=== PATIENT | male | born 1980 | race Two or more races ===

== ENCOUNTER 2018-07-04 12:08 | Day surgery (SDC) | payer OTHER ==
[~2018-07-04 12:08] MED LIST: Lactated Ringers 1,000 ML IV SCH
--- NOTE | 2018-07-04 13:55 | PCM.PREANE ---
Preanesthetic Assessment - Anesthesia/Transfusion/Family Hx Anesthesia History: Prior Anesthesia Without Reaction Family History of Anesthesia Reaction: No Transfusion History: No Prior Transfusion(s) - Review of Systems General: No Symptoms Pulmonary: No Symptoms Cardiovascular: No Symptoms Gastrointestinal: No Symptoms Neurological: No Symptoms Other: Reports: None - Physical Assessment NPO Status Date: 07/03/18 O2 Sat by Pulse Oximetry: 98 Respiratory Rate: 16 Vital Signs: Last Vital Signs Temp 36.4 C 07/04/18 13:05 Pulse 53 L 07/04/18 13:05 Resp 16 07/04/18 13:05 BP 141/72 H 07/04/18 13:05 Pulse Ox 98 07/04/18 13:05 Height: 1.7 m Weight: 83.461 kg ASA Class: 2 Mental Status: Alert & Oriented x3 Airway Class: Mallampati = 1 Dentition: Reports: Normal Dentition ROM/Head Extension: Full Lungs: Clear to Auscultation, Normal Respiratory Effort Cardiovascular: Regular Rate, Regular Rhythm - Allergies Allergies/Adverse Reactions: Allergies Allergy/AdvReac Type Severity Reaction Status Date / Time Dairy Products Allergy Diarrhea Verified 07/02/18 12:09 - Blood Blood Available: No - Acknowledgements Anesthesia Type Planned: General Anesthesia Pt an Appropriate Candidate for the Planned Anesthesia: Yes Alternatives and Risks of Anesthesia Discussed w Pt/Guardian: Yes Pt/Guardian Understands and Agrees with Anesthesia Plan: Yes PreAnesthesia Questionnaire HEENT History: Reports: Impaired Vision Other HEENT History: blind in left eye Cardiovascular History: Reports: Hypertension Other Cardiovascular History: has taken Amlodipine for years but was told to stop by Dr. Dick Respiratory History: Reports: None Gastrointestinal History: Reports: Chronic Diarrhea Other Gastrointestinal History: lactose intolerant Genitourinary History: Reports: None Musculoskeletal History: Reports: Fracture Other Musculoskeletal History: hx of fx left arm as a child Neurological History: Reports: None Psychiatric History: Reports: None Endocrine/Metabolic History: Reports: None Hematologic History: Reports: None Immunologic History: Reports: None Oncologic (Cancer) History: Reports: None Dermatologic History: Reports: None - Infectious Disease History Infectious Disease History: Reports: None - Past Surgical History GI Surgical History: Reports: Other (See Below) Other GI Surgeries/Procedures: "some kind" of surgery on his "butt" - SUBSTANCE USE Smoking Status *Q: Never Smoker Recreational Drug Use History: No - HOME MEDS Home Medications: Home Meds Mometasone Furoate [Nasonex [place]] 1 spray NASBOTH BID 07/02/18 [History] - CURRENT (IN HOUSE) MEDS Current Meds: Current Medications Lactated Ringer's (Ringers, Lactated) 1,000 mls @ 125 mls/hr IV ASDIRECTED [facility] Last Admin: 07/04/18 13:09 Dose: 125 mls/hr
[2018-07-04] MEDS ORDERED: Midazolam 1 MG/ML 2 ML SDV ONE (14:09)
[2018-07-04] MEDS ORDERED: fentaNYL 100 MCG/2 ML SDV ONE (14:10)
[2018-07-04] MEDS ORDERED: Propofol 200 MG/20 ML SDV ONE ×2 (14:12→14:47)
--- NOTE | 2018-07-04 14:59 | PCM.OPNOTE ---
- General Post-Op/Procedure Note Date of Surgery/Procedure: 07/04/18 Operative Procedure(s): egd w bx. colonoscope Findings: see dict [id number] Pre Op Diagnosis: bloating and abd pain Post-Op Diagnosis: Same Anesthesia Technique: Moderate Sedation Primary Surgeon: Lukas Dick Pathology: egd bx Complications: None Condition: Good
[2018-07-04 15:27] VITALS: BP 124/70
--- NOTE | 2018-07-04 15:40 | PCM.POSTAN ---
POST ANESTHESIA ASSESSMENT - MENTAL STATUS Mental Status: Alert, Oriented - RESPIRATORY Respiratory Status: Respiratory Rate WNL, Airway Patent, O2 Saturation Stable - CARDIOVASCULAR CV Status: Pulse Rate WNL, Blood Pressure Stable - GASTROINTESTINAL GI Status: No Symptoms - POST OP HYDRATION Hydration Status: Adequate & Stable
--- NOTE | 2018-07-04 15:41 | PCM48HPAN ---
Post Anesthesia Note - EVALUATION WITHIN 48HRS OF ANESTHETIC Vital Signs in Normal Range: Yes Patient Participated in Evaluation: Yes Respiratory Function Stable: Yes Airway Patent: Yes Cardiovascular Function Stable: Yes Hydration Status Stable: Yes Pain Control Satisfactory: Yes Nausea and Vomiting Control Satisfactory: Yes Mental Status Recovered: Yes Resp Rate: 14
--- NOTE | 2018-07-04 16:32 | OR ---
SURGEON: Lukas Dick MD DATE OF PROCEDURE: 07/04/2018 PREOPERATIVE DIAGNOSES: Abdominal pain and bloating. POSTOPERATIVE DIAGNOSES: Esophagogastroduodenoscopy diagnosis: Acid reflux. Colonoscopy diagnosis: Hemorrhoids. PROCEDURES PERFORMED: Esophagogastroduodenoscopy with biopsy and colonoscopy. PROCEDURE IN DETAIL: EGD: The patient was taken to the endoscopy room, and with the INTAKE COUNSELOR, Diprivan was administered. A well-lubricated EGD scope was gently inserted through the oropharynx, down the esophagus, passing through the gastroesophageal junction, into the stomach. The mucosa was examined upon the passage. Any etiology will be noted. Once in the stomach, we continued to advance to the distal antrum, passed through the pylorus into the second portion of the duodenum. Again, the mucosa was examined for any abnormality and etiology. The scope was then retrieved back to the stomach and then retroflexed to look at the fundus of the stomach. If a biopsy was indicated, we will biopsy the antrum, body, and gastroesophageal junction. The air will be sucked out while the scope is retrieved to reduce the patient's discomfort. The patient tolerated the procedure well. There were no intraoperative complications. Dr. Dick was present through the whole procedure. Prior to surgery, a time-out had been called, the patient identified, procedure identified and antibiotic administered. Colonoscopy procedure: The patient was taken to the endoscopy room. A time out was called, patient identified, and procedure identified. Diprivan was then administrated. Patient went from awake to sleep, hearing doctor talking or door closing is normal. Perineum inspection and digital examination were then performed. A well- lubricated colonoscope was gently inserted through the rectum, advanced past the rectosigmoid junction, the descending colon, splenic flexure, transverse colon, hepatic flexure, ascending colon, arrived to the cecum. Cecum was identified as dictated in the finding. Then the scope was carefully withdrawn while attention was paid to the mucosal surface for any abnormality. Air will be sucked out during the scope withdrawal. At the rectum, retroflexed to examine any rectal diseases, fistula or hemorrhoids. Patient tolerated procedure well. There were no intraoperative complications, and Dr. Dick was present throughout the whole procedure. FINDINGS: EGD findings: 1. The patient is easily sedated with INTAKE COUNSELOR and Diprivan. The patient is soundly snoring. 2. Oropharynx and proximal esophagus are free of disease. No stricture, inflammation, or ulceration. Distal esophagus at GE junction at 40 shows a moderate amount of salmon-colored change consistent with significant GERD. Stomach rugae is normal in appearance and antrum is inflamed. Duodenum is grossly normal. Retroflexed look at the fundus of stomach, there is no hiatal hernia. There is no bile, food, blood, or ulcer observed. Biopsy done at antrum, GE junction at 40, body, and sucked out the gas while scope coming out. Colonoscopy findings: 1. The patient is easily sedated with INTAKE COUNSELOR and Diprivan. The patient is soundly snoring. 2. Bowel prep is average with moderate amount of liquid stool. No solid stool. 3. Colon is rather straight forward. Cecum indicated by ileocecal fold, one- to-one indentation, and light immittance is not observed. Appendiceal orifice is observed. Mucosa examined upon scope pulling out with some irrigation. The patient does not have diverticulosis, polyp, mass, growth, inflammation, stricture, ulceration, or AV malformation. The patient does have mild internal hemorrhoids, no external hemorrhoids. The patient would benefit from repeat colonoscopy in 10 years from today or if clinically indicated otherwise. [facility] / TANIA /[id number]
== END 2018-07-04 15:42 | disposition home or self-care (01) ==
LOC: MW.SDS 12:08
PROVIDERS: ATTEND Surgery
DX: K29.50 Unspecified chronic gastritis without bleeding (principal); K29.00 Acute gastritis without bleeding; K21.9 Gastro-esophageal reflux disease without esophagitis; K64.8 Other hemorrhoids; I10 Essential (primary) hypertension; G47.00 Insomnia, unspecified; E73.9 Lactose intolerance, unspecified; J30.2 Other seasonal allergic rhinitis; Z79.899 Other long term (current) drug therapy
CPT/HCPCS: 43239; 45378; J2250; J2704; J3010; J7120; 00813; 88305; 88312